=== PATIENT | female | born 1940 ===

== ENCOUNTER 2023-04-18 14:31 | Inpatient (IN) | payer OTHER ==
[~2023-04-18] VITALS: Ht 157.5 cm; Wt 60.3 kg
[2023-04-21] MEDS ORDERED: CHILDREN'S ASPI81 MG PO (15:09)
[2023-04-21] MEDS ORDERED: DILTIAZEM ER120 MG PO (15:09)
[2023-04-21] MEDS ORDERED: PENTOXIFYLLINE400 MG PO (15:09)
[2023-04-21] MEDS ORDERED: GALZIN50 MG PO (15:10)
[2023-04-21] MEDS ORDERED: ZOCOR20 MG PO (15:10)
[2023-04-23] MEDS ORDERED: FUROSEMIDE20 MG (10:40)
[2023-04-23] MEDS ORDERED: ATENOLOL25 MG (10:40)
== END 2023-04-24 12:32 | disposition home or self-care (01) | DRG 331 ==
LOC: O/R 04-23 06:00 → SURG 04-23 11:45 → SURH 04-23 14:25
PROVIDERS: ADMIT Colon & Rectal Surgery; ATTEND Colon & Rectal Surgery
PROC: 0DBP7ZZ Excision of Rectum, Via Natural or Artificial Opening (ICD-10-PCS; 2023-04-23)
PROC: 0DUR0JZ Supplement Anal Sphincter with Synthetic Substitute, Open Approach (ICD-10-PCS; 2023-04-23)
PROC: 0JQC0ZZ Repair Pelvic Region Subcutaneous Tissue and Fascia, Open Approach (ICD-10-PCS; principal; 2023-04-23 14:15)
DX: K62.3 Rectal prolapse (principal); R15.9 Full incontinence of feces; N81.6 Rectocele; Z20.822 Contact with and (suspected) exposure to COVID-19